=== PATIENT | female | born 1995 | race Hispanic/Latino ===

== ENCOUNTER 2018-05-31 14:34 | Inpatient (IN) | payer MEDICAID, OTHER, SELFPAY ==
[2018-05-31] MEDS ORDERED: HYDROcodone/Acetaminophen 5/325 mg Tablet PO PRN (22:30)
[2018-05-31] MEDS ORDERED: Carboprost 250 MCG/ML AMP IM PRN (22:30)
[2018-05-31] MEDS ORDERED: Lidocaine 1% (PF) 30 ML VIAL SC PRN (22:30)
[2018-05-31] MEDS ORDERED: Butorphanol Tartrate 1 MG/ML VIAL SLOW IVP PRN (22:30)
[2018-05-31] MEDS ORDERED: Ibuprofen 800 MG TAB PO PRN (22:30)
[2018-05-31] MEDS ORDERED: Methylergonovine 0.2 MG/ML VIAL IM PRN (22:30)
[2018-05-31] MEDS ORDERED: Promethazine HCl 25 MG/ML VIAL IM PRN (22:30)
[2018-05-31] MEDS ORDERED: Ondansetron PF 4 MG/2 ML Vial IVP PRN (22:30)
[2018-05-31] MEDS ORDERED: NS w/ Oxytocin 10 units 500 ML IV SCH ×2 (22:30)
[2018-05-31] MEDS ORDERED: Misoprostol 200 MCG TAB PR PRN (22:30)
[2018-05-31] MEDS ORDERED: Diphenoxylate HCl/Atropine Tablet PO PRN (22:30)
[2018-05-31 22:52] VITALS: BMI 32.9
[2018-05-31] MEDS: Misoprostol 100 MCG TAB PO SCH (23:45)
[2018-05-31] MEDS: Lactated Ringer's 1,000 ML IV SCH (23:45)
[2018-05-31 23:49] LABS: Mean Corpuscular HGB CONC 32.2 g/dL (32.0-36.0); Mean Corpuscular Volume 77.6 fL (78.0-98.0); Mean Platelet Volume 8.3 fL (7.4-10.4); Platelet Count 268 thou/uL (130-400); RBC Distribution Width 15.4 % (11.5-14.5); Red Blood Cell (RBC) Count 4.41 mill/uL (4.00-5.20); White Blood Cell (WBC) Count 9.1 thou/uL (4.8-10.8)
[2018-06-01 00:31] LABS: Syphilis Antibody Nonreactive (Nonreactive); Syphilis Antibody Index 0.03 S/CO (<1.00 Non-Reactive)
[2018-06-01 00:57] LABS: HBSAg Index 0.27 S/CO (0-0.99); Hep B Surf Ag Non-Reactive S/CO (NonReactive)
[2018-06-01] MEDS: Misoprostol 100 MCG TAB PO SCH ×2 (03:52→10:26)
[2018-06-01] MEDS ORDERED: Fentanyl 4 mcg/Bup 0.1% Cadd 100 ML ONE ×2 (09:03→15:04)
[2018-06-01] MEDS ORDERED: Lidocaine 1.5%/Epinephrine 1:200,000 5 ML AMPUL IJ ONE (09:14)
[2018-06-01] MEDS ORDERED: Ondansetron PF 4 MG/2 ML Vial IVP PRN ×2 (09:29→20:50)
[2018-06-01] MEDS ORDERED: ePHEDrine/0.9% NaCl/PF SYRINGE 50 mg/10 ml SLOW IVP PRN (09:29)
[2018-06-01] MEDS ORDERED: diphenhydrAMINE 50 MG/ML VIAL IVP PRN (09:29)
[2018-06-01] MEDS ORDERED: Promethazine HCl 25 MG/ML VIAL IM PRN (09:29)
[2018-06-01] MEDS ORDERED: Eucerin (Mineral Oil/Petrolatum,White) 30 gm Jar TOP PRN (09:29)
[2018-06-01] MEDS ORDERED: Acetaminophen 325 MG TAB PO PRN (09:29)
[2018-06-01] MEDS ORDERED: Lactated Ringer's 500 ML IV PRN (09:29)
[2018-06-01] MEDS ORDERED: Naloxone HCl 0.4 mg/ml Vial IVP PRN ×2 (09:29)
[2018-06-01] MEDS ORDERED: Fentanyl 4 mcg/Bupivacaine 0.1% Cassette 100 ML EPIDURAL SCH (09:30)
[2018-06-01] MEDS ORDERED: Communication Order-Pharmacy FS SCH (09:30)
[2018-06-01] MEDS: Lactated Ringer's 1,000 ML IV SCH ×2 (10:24→23:16)
[2018-06-01] MEDS: NS / Oxytocin 40 units/1000ml 1,000 ML IV PRN ×2 (17:16→20:03)
[2018-06-01] MEDS ORDERED: NS / Oxytocin 40 units/1000ml 1,000 ML IV SCH (20:50)
[2018-06-01] MEDS ORDERED: Bisacodyl 10 MG SUPP PR PRN (20:50)
[2018-06-01] MEDS ORDERED: Lanolin Ointment 7 GM TUBE TOP PRN (20:50)
[2018-06-01] MEDS ORDERED: Benzocaine-Menthol 82.5 ML CAN TOP PRN (20:50)
[2018-06-01] MEDS ORDERED: HYDROcodone/Acetaminophen 5/325 mg Tablet PO PRN ×2 (20:50)
[2018-06-01] MEDS ORDERED: Milk Of Magnesia 30 ML UDCUP PO PRN (20:50)
[2018-06-01] MEDS: Docusate Calcium (SURFAK) 240 MG CAP PO SCH (21:23)
[2018-06-01] MEDS: Ibuprofen 800 MG TAB PO SCH (23:16)
[2018-06-02] MEDS: Ibuprofen 800 MG TAB PO SCH ×3 (04:29→21:50)
[2018-06-02 07:56] LABS: Hemoglobin 9.8 g/dL (12.0-16.0); Mean Corpuscular HGB CONC 32.3 g/dL (32.0-36.0); Mean Corpuscular Hemoglobin 25.1 pg (25.0-35.0); Mean Corpuscular Volume 77.7 fL (78.0-98.0); Mean Platelet Volume 8.5 fL (7.4-10.4); Platelet Count 226 thou/uL (130-400); RBC Distribution Width 15.5 % (11.5-14.5); Red Blood Cell (RBC) Count 3.92 mill/uL (4.00-5.20); White Blood Cell (WBC) Count 14.4 thou/uL (4.8-10.8)
[2018-06-02] MEDS: Prenatal Vitamin 1 TAB PO SCH (08:28)
[2018-06-02] MEDS: Ferrous Sulfate 325 MG TAB PO SCH ×2 (08:28→17:39)
[2018-06-02] MEDS: Docusate Calcium (SURFAK) 240 MG CAP PO SCH ×2 (08:28→21:50)
[2018-06-02] MEDS ORDERED: Adacel (T-DAP) 0.5 ML SYRINGE IM ONE (09:00)
[2018-06-03] MEDS: Ibuprofen 800 MG TAB PO SCH ×2 (05:49→13:44)
[2018-06-03] MEDS: Prenatal Vitamin 1 TAB PO SCH (08:21)
[2018-06-03] MEDS: Docusate Calcium (SURFAK) 240 MG CAP PO SCH (08:21)
[2018-06-03] MEDS: Ferrous Sulfate 325 MG TAB PO SCH (08:21)
[2018-06-03 08:24] VITALS: BP 128/61; TEMP 98
== END 2018-06-03 14:30 | disposition home or self-care (01) | DRG 807 ==
LOC: L&D 22:14 → EDSTATUS 06-01 14:26 → 3SW 06-01 20:52
PROVIDERS: ADMIT Family Medicine; ATTEND Family Medicine
PROC: 10E0XZZ Delivery of Products of Conception, External Approach (ICD-10-PCS; principal; 2018-05-31)
DX: O80 Encounter for full-term uncomplicated delivery (principal); Z37.0 Single live birth; Z3A.39 39 weeks gestation of pregnancy
CPT/HCPCS: 36415; 51702; 85027; 86780; 86850; 86900; 86901; 87340; J2001; J3490